=== PATIENT | female | born 1995 | race Caucasian/White ===

== ENCOUNTER 2016-10-06 14:48 | Emergency (ER) | payer BC ==
[~2016-10-06] VITALS: Ht 165.1 cm; Wt 53.4 kg
[~2016-10-06 14:48] MED LIST: FLUD0.1T10 PO; MELA1TAB5 PO; ONDA4TAB10 SL; PROC1TAB5 PO
[2016-10-06 14:58] VITALS: TEMP 36.8; Ht 165.1 cm; Wt 53.4 kg
[2016-10-06] MEDS ORDERED: MIDO5TAB PO (15:53)
[2016-10-06] MEDS ORDERED: MELA3TAB PO (15:53)
[2016-10-06] MEDS ORDERED: FEXO1TAB49 PO (15:53)
[2016-10-06] MEDS ORDERED: SODIUM CHLORIDE 0.9% 1000ML 1,000 ML IV STA (15:56)
--- NOTE | 2016-10-06 16:08 | EMERGENCY ROOM VISIT NOTE ---
History Report prepared by Evi: Liz High Under the Supervision of: Dr. John Means M.D. First contact with patient: 15:52 Chief Complaint: TACHYCARDIA Stated Complaint: INTERMITTENT TACHYCARDIA, SYNCOPE Nursing Triage Summary: Pt c/o tachycardia events over the last 3 days as well as near syncopal episodes. Denies pain, denies caffeine intake. Has implanted recorder. History of Present Illness The patient is a 21 year old female who presents to the Emergency Room with complaints of intermittent tachycardia over the last three days. The patient states that each episode lasts approximately 3-10 minutes each. She states that each episode comes randomly and denies it being related to caffeine intake. The patient states that she has had this in the past, but denies it ever going on this long. She states that she has an internal loop monitor, stating that it was placed by Dr. Lynch, Cardiology. The patient states that she last saw Dr. Lynch last week, but states that she was not having palpitations then. The patient states that cardiology is unsure why she has the Postural orthostatic tachycardia syndrome. She states that she tried calling her shroudman's office today, but had difficulty getting through. The patient additionally notes that last evening she had a near syncopal episode. She states that she became diaphoretic and her vision blacked out. The patient states that she was sitting during the event. The patient's friend states that the episode lasted 40 seconds to one minute. The patient denies any recent illness. She does note that she has become dizzy with sitting up or standing for five minutes at a time since her symptoms began. The patient denies any urinary symptoms. She reports a normal appetite and fluid intake. Source of History: patient Onset: three days Position: other (global) Quality: other (tachycardia) Timing: intermittent Associated Symptoms: + diaphoresis, No urinary symptoms Note: Associated Symptoms: near syncopal, vision blacked out Review of Systems See HPI for pertinent positives & negatives. A total of 10 systems reviewed and were otherwise negative. Past Medical & Surgical Medical Problems: (1) Concussion (2) Headache Family History FH: migraine headache Hypertension Social History Smoking Status: Never Smoker Alcohol Use: none Drug Use: none Marital Status: single Housing Status: lives with roommate Occupation Status: employed, [employer] student Current/Historical Medications Scheduled Fexofenadine Hcl (Emelia Allergy), 180 MG PO DAILY Fludrocortisone Acetate (Florinef), 0.1 MG PO DAILY Melatonin (Melatonin), 3 MG PO HS Midodrine Hcl (Midodrine Hcl), 5 MG PO TID Scheduled PRN Napztnykyr-Qcqkcjnmggpcm-Wcqha (Fioricet), 1 CAP PO DAILY PRN for Headache Allergies Coded Allergies: Lactose Intolerance (Verified Allergy, Unknown, Unknown., 09/28/15) Reported by PT. Physical Exam Vital Signs Date Time Temp Pulse Resp B/P Pulse Ox O2 Delivery O2 Flow Rate FiO2 10/06/16 16:50 65 9 133/79 109 142/87 95 145/95 10/06/16 16:43 63 10/06/16 16:38 74 14 129/77 98 Room Air 10/06/16 14:58 36.8 94 16 145/94 98 Room Air Physical Exam GENERAL: Patient is in no acute distress. HEENT: No acute trauma, normocephalic atraumatic, mucous membranes moist, no nasal congestion, no scleral icterus. NECK: No stridor, no adenopathy, no meningismus, trachea is midline. LUNGS: Clear to auscultation bilaterally, no wheeze, no rhonchi, breath sounds equal. HEART: Without murmurs gallops or rubs, regular rate and rhythm. ABDOMEN: Soft, nontender, bowel sounds positive, no hernias, no peritonitis. EXTREMITIES: No cyanosis or edema, full range of motion of all the joints without pain or difficulty, no signs for acute trauma. NEUROLOGIC: Oriented x 3, no acute motor or sensory deficits, no focal weakness. SKIN: No rash, no jaundice, no diaphoresis. Medical Decision & Procedures ER Provider Diagnostic Interpretation: Orthostatic vital signs were positive, heart rate increased with standing. Laboratory Results 10/06/16 15:29 10/06/16 15:29 Test 10/06/16 15:29 10/06/16 16:50 Red Blood Count 4.10 M/uL (4.2-5.4) Mean Corpuscular Volume 88.5 fL (80-100) Mean Corpuscular Hemoglobin 30.0 pg (25-34) Mean Corpuscular Hemoglobin Concent 33.9 g/dl (32-36) RDW Standard Deviation 39.3 fL (36.4-46.3) RDW Coefficient of Variation 12.2 % (11.5-14.5) Mean Platelet Volume 10.3 fL (7.4-10.4) Anion Gap 8.0 mmol/L (3-11) Est Creatinine Clear Calc Drug Dose 116.2 ml/min Estimated GFR () 146.8 Estimated GFR (Non- 126.7 BUN/Creatinine Ratio 7.8 (10-20) Calcium Level 9.0 mg/dl (8.5-10.1) Thyroid Stimulating Hormone (TSH) 1.790 uIu/ml (0.300-4.500) Urine Color YELLOW Urine Appearance CLEAR (CLEAR) Urine pH 8.5 (4.5-7.5) Urine Specific [place] 1.011 (1.000-1.030) Urine Protein NEG (NEG) Urine Glucose (UA) NEG (NEG) Urine Ketones 1+ (NEG) Urine Occult Blood NEG (NEG) Urine Nitrite NEG (NEG) Urine Bilirubin NEG (NEG) Urine Urobilinogen NEG (NEG) Urine Leukocyte Esterase NEG (NEG) Urine Test NEG (NEG) Laboratory results reviewed by me. Medications Administered Medications (Trade) Dose Ordered Sig/Jennifer Route Start Time Stop Time Status Last Admin Dose Admin Sodium Chloride 1,000 ml @ 999 mls/hr Q1H1M STAT IV 10/06/16 15:56 10/06/16 16:56 DC 10/06/16 16:37 999 MLS/HR Sodium Chloride (Nss 500ml) 500 ml @ 999 mls/hr Q31M STAT IV 10/06/16 17:09 10/06/16 17:39 DC 10/06/16 17:30 999 MLS/HR ECG Indication: tachycardia Rate (beats per minute): 67 Rhythm: normal sinus Findings: no acute ischemic change, no ectopy ED Course 1552: The patient was evaluated in room B2. A complete history and physical exam was performed. 1556: Ordered Sodium Chloride 1000 ml @ 999 mls/hr IV. 1558: I discussed the patients case with Dr. Lynch, Cardiology. He states that [employer] should be brought in for an interrogation. 1601: I called for the [employer] rep at this time. 1743: Per the [employer] tech, every episode has been sinus tachycardia, rate of 140-150, and nothing to be concerned about. He is going to speak to Dr. Lynch, Cardiology and get back to me. Spoke with Dr. Lynch, pt is stable for discharge to follow in the office next week. Medical Decision The patient is a 21 year old female who presents to the ED with complaints of intermittent tachycardia. Differential diagnoses considered include dehydration , electrolyte imbalance, dysrhythmia, anemia, thyroid disorder. There is no leukocytosis or concerning anemia. No significant electrolyte abnormality or kidney failure. The patient appears to be in a euthyroid state. EKG shows a normal sinus rhythm, no acute ischemia. Orthostatic vital signs were positive as the heart rate increased with standing. The patient received IV saline, 1.5 L. She seems to be doing well. I spoke with the patient's shroudman. [employer] has been involved. It appears that the episodes are all sinus tachycardia with a rate up to 150, no concerning dysrhythmia. The patient was reassured. The patient is being discharged to follow with cardiology, hydration was encouraged. No medication changes were recommended. Consults Time Called: 1557 Consulting Physician: Dr. Lynch, Cardiology Returned Call: [phone] I discussed the patients case with Dr. Lynch, Cardiology. He states that [employer] should be brought in for an interrogation. Impression Primary Impression: Tachycardia Additional Impression: Near syncope Scribe Attestation The scribe's documentation has been prepared under my direction and personally reviewed by me in its entirety. I confirm that the note above accurately reflects all work, treatment, procedures, and medical decision making performed by me. Departure Information Dispostion Home / Self-Care Referrals RV. Maldonado MD (PCP) Patient Instructions My [facility] Additional Instructions stay well hydrated rest no alcohol this weekend see cardiology this upcoming week--call for an appt testing today was all ok return if worsening Problem Qualifiers
[2016-10-06 16:12] LABS: HEMATOCRIT 36.3 % (37-47); MEAN CELL VOLUME 88.5 fL (80-100); MEAN CORPUSCULAR HGB CONC 33.9 g/dl (32-36); MEAN PLATELET VOLUME 10.3 fL (7.4-10.4); PLATELET COUNT 250 K/uL (130-400); WHITE BLOOD COUNT 5.38 K/uL (4.8-10.8)
[2016-10-06 16:20] LABS: BUN/CREATININE RATIO 7.8 (10-20); CREATININE 0.64 mg/dl (0.60-1.20); POTASSIUM 3.2 mmol/L (3.5-5.1)
[2016-10-06 16:31] LABS: THYROID STIMULATING HORMONE 1.79 uIu/ml (0.300-4.500)
[2016-10-06] MEDS ORDERED: SODIUM CHLORIDE 0.9% 500ML 500 ML IV STA (17:09)
[2016-10-06 17:22] LABS: URINE APPEARANCE CLEAR (CLEAR); URINE BILIRUBIN NEG (NEG); URINE COLOR YELLOW; URINE NITRITE NEG (NEG); URINE PH 8.5 (4.5-7.5); URINE SPECIFIC GRAVITY 1.011 (1.000-1.030); UROBILINOGEN NEG (NEG)
[2016-10-06 17:24] LABS: MANUAL MICROSCOPIC REQUIRED? NO; REVIEW REQ? NO
[2016-10-06 20:00] VITALS: BP 126/81; PULSE 68; O2SAT 100
[2016-10-06] MEDS ORDERED: BUTA1CAP17 PO (23:07)
== END 2016-10-06 20:02 | disposition home or self-care (01) ==
LOC: C.EDB 14:49
DX: R00.0 Tachycardia, unspecified (principal); R55 Syncope and collapse; R61 Generalized hyperhidrosis; Z79.899 Other long term (current) drug therapy; Z87.828 Personal history of other (healed) physical injury and trauma; Z82.49 Family history of ischemic heart disease and other diseases of the circulatory system; Z84.89 Family history of other specified conditions

== ENCOUNTER 2017-03-27 18:56 | Emergency (ER) | payer BC ==
[~2017-03-27] VITALS: Ht 165.1 cm; Wt 56.6 kg
[~2017-03-27 18:56] MED LIST changes: +BUTA1CAP17 PO; +FEXO1TAB49 PO; -MELA1TAB5 PO; +MELA3TAB PO; +MIDO5TAB PO; -ONDA4TAB10 SL; -PROC1TAB5 PO
[2017-03-27 18:59] VITALS: TEMP 37.2; Ht 165.1 cm; Wt 56.6 kg
[2017-03-27] MEDS ORDERED: SODIUM CHLORIDE 0.9% 1000ML 1,000 ML IV STA (20:37)
--- NOTE | 2017-03-27 20:43 | EMERGENCY ROOM VISIT NOTE ---
History Report prepared by Evi: Ciaran Lang Under the Supervision of: Dr. Brandy Negron M.D. First contact with patient: 20:31 Chief Complaint: SYNCOPE Stated Complaint: FAINTING,TACHY Nursing Triage Summary: pt reports" passed out 2 times earlier today. in and out of tachycardia" started at 1345 then 1530 History of Present Illness The patient is a 21 year old female who presents to the Emergency Room with complaints of two episodes of syncope that occurred today. Earlier in the day, the patient was in yoga class when she started feeling herself become tachycardic. Her vision started to dim so she lay on her back, but then she passed out. Her heart rate remained around 180 for about two hours, and then she passed out again. She denies any chest pain, or any recent sickness. She has a past history of these syncopal episodes and follows up with Dr. Lynch of Cardiology. She has an implanted [employer] device in place. She is not taking control. Source of History: patient Onset: earlier today Position: other (Global) Symptom Intensity: 2 Episodes Quality: other (Syncope) Timing: resolved Associated Symptoms: No fevers, No headache, No sorethroat, No cough, No chest pain Review of Systems See HPI for pertinent positives & negatives. A total of 10 systems reviewed and were otherwise negative. Past Medical & Surgical Medical Problems: (1) Concussion (2) Headache Family History FH: migraine headache Hypertension Social History Smoking Status: Never Smoker Alcohol Use: none Drug Use: none Marital Status: single Housing Status: lives with roommate Occupation Status: employed, [employer] student Current/Historical Medications Scheduled Fexofenadine Hcl (Emelia Allergy), 180 MG PO DAILY Fludrocortisone Acetate (Florinef), 0.1 MG PO DAILY Melatonin (Melatonin), 3 MG PO HS Midodrine Hcl (Midodrine Hcl), 5 MG PO TID Scheduled PRN Qkrwumzerw-Mvgtpjkqanirj-Aexxo (Fioricet), 1 CAP PO DAILY PRN for Headache Allergies Coded Allergies: Lactose Intolerance (Verified Allergy, Unknown, Unknown., 03/27/17) Reported by PT. Physical Exam Vital Signs Date Time Temp Pulse Resp B/P (MAP) Pulse Ox O2 Delivery O2 Flow Rate FiO2 03/27/17 22:55 74 18 121/73 98 03/27/17 21:16 77 117/69 95 130/86 120 145/92 03/27/17 20:49 77 03/27/17 18:59 37.2 95 18 146/80 97 Room Air Physical Exam Vital signs reviewed. General: Well-appearing female, in no significant distress. HEENT: No scleral icterus, PERRLA, neck supple. Atraumatic. Cardiovascular: Regular rate and rhythm, no extra sounds. Pulmonary: Clear to auscultation bilaterally, normal work of breathing. Abdomen: Soft, nontender, nondistended, positive bowel sounds. Musculoskeletal: Atraumatic, no peripheral edema. Neurologic: Patient awake alert and oriented x 3, full strength in all 4 extremities. Cranial nerves 2 through 12 grossly intact. Skin: Warm, dry, no rash Medical Decision & Procedures ER Provider Diagnostic Interpretation: Radiology results as stated below per my review and radiologist interpretation: CHEST ONE VIEW PORTABLE CLINICAL HISTORY: tachycardia COMPARISON STUDY: February 11, 2016 FINDINGS: The cardiac and mediastinal contours are normal. There is no evidence of focal pulmonary consolidation. There is no evidence of failure. No pleural effusions are visualized.[ An electronic device projects over the left chest possibly representing an event recorder IMPRESSION: No active disease in the chest. Electronically signed by: Tremaine Foster M.D. 03/27/2017 8:54 PM Dictated Date/Time: 03/27/2017 8:54 PM Laboratory Results 03/27/17 21:14 Red Blood Count 4.08, Mean Corpuscular Volume 87.3, Mean Corpuscular Hemoglobin 29.2, Mean Corpuscular Hemoglobin Concent 33.4, Mean Platelet Volume 10.3, Neutrophils (%) (Auto) 66.9, Lymphocytes (%) (Auto) 26.6, Monocytes (%) (Auto) 6.0, Eosinophils (%) (Auto) 0.3, Basophils (%) (Auto) 0.2, Neutrophils # (Auto) 4.05, Lymphocytes # (Auto) 1.61, Monocytes # (Auto) 0.36, Eosinophils # (Auto) 0.02, Basophils # (Auto) 0.01 03/27/17 21:14 Test 03/27/17 21:14 03/27/17 21:24 White Blood Count 6.05 K/uL (4.8-10.8) Red Blood Count 4.08 M/uL (4.2-5.4) Hemoglobin 11.9 g/dL (12.0-16.0) Hematocrit 35.6 % (37-47) Mean Corpuscular Volume 87.3 fL (80-100) Mean Corpuscular Hemoglobin 29.2 pg (25-34) Mean Corpuscular Hemoglobin Concent 33.4 g/dl (32-36) Platelet Count 251 K/uL (130-400) Mean Platelet Volume 10.3 fL (7.4-10.4) Neutrophils (%) (Auto) 66.9 % Lymphocytes (%) (Auto) 26.6 % Monocytes (%) (Auto) 6.0 % Eosinophils (%) (Auto) 0.3 % Basophils (%) (Auto) 0.2 % Neutrophils # (Auto) 4.05 K/uL (1.4-6.5) Lymphocytes # (Auto) 1.61 K/uL (1.2-3.4) Monocytes # (Auto) 0.36 K/uL (0.11-0.59) Eosinophils # (Auto) 0.02 K/uL (0-0.5) Basophils # (Auto) 0.01 K/uL (0-0.2) RDW Standard Deviation 37.7 fL (36.4-46.3) RDW Coefficient of Variation 11.9 % (11.5-14.5) Immature Granulocyte % (Auto) 0.0 % Immature Granulocyte # (Auto) 0.00 K/uL (0.00-0.02) Anion Gap 8.0 mmol/L (3-11) Est Creatinine Clear Calc Drug Dose 106.5 ml/min Estimated GFR () 133.3 Estimated GFR (Non- 115.0 BUN/Creatinine Ratio 9.7 (10-20) Calcium Level 9.3 mg/dl (8.5-10.1) Magnesium Level 2.3 mg/dl (1.8-2.4) Total Bilirubin 0.5 mg/dl (0.2-1) Direct Bilirubin 0.1 mg/dl (0-0.2) Aspartate Amino Transf (AST/SGOT) 17 U/L (15-37) Alanine Aminotransferase (ALT/SGPT) 16 U/L (12-78) Alkaline Phosphatase 69 U/L (45-117) Total Protein 8.1 gm/dl (6.4-8.2) Albumin 4.2 gm/dl (3.4-5.0) Bedside Troponin I < 0.030 ng/ml (0-0.045) Laboratory results per my review. Medications Administered Medications (Trade) Dose Ordered Sig/Jennifer Route Start Time Stop Time Status Last Admin Dose Admin Sodium Chloride 1,000 ml @ 999 mls/hr Q1H1M STAT IV 03/27/17 20:37 03/27/17 21:37 DC 03/27/17 21:24 999 MLS/HR Potassium Chloride (Klor-Con M10) 40 meq NOW STAT PO 03/27/17 22:00 03/27/17 22:01 DC 03/27/17 22:32 40 MEQ ECG Indication: syncope Rate (beats per minute): 74 Rhythm: normal sinus Findings: no acute ischemic change, no ectopy ED Course 2030: Past medical records reviewed. The patient was evaluated in room A12B. A complete history and physical examination was performed. 2036: Ordered Sodium Chloride 1000 ml @ 999 mls/hr IV 2199: Ordered Potassium Chloride 40 mEq PO 2234: I received the [employer] report at this time. It showed 1 episode of a few irregular PAC's without ventricular tachycardia or SVT, d/w with cardiology. 2236: I spoke with Dr. Linda of Cardiology at this time. He is comfortable with the patient being discharged. f/u in office 0: Upon reevaluation, the patient appeared to have improvement of her symptoms. I discussed findings with her. She verbalized agreement of the treatment plan. She was discharged home. Medical Decision Differential diagnosis: Etiologies such as premature contractions, electrolyte abnormality, cardiac dysrhythmia, thyroid dysfunction, pulmonary embolism, infection, gastrointestinal, as well as others were entertained. This pt was evaluated and appeared to be in no distress. IV access was obtained and lab work was drawn. Pt was placed on the manager zone. Pt was hydrated with NSS. Orthostatics are positive. Implanted loop monitor was interrogated and reveals a few PACs without significant arrhythmia to explain syncope. Early Feb there was a 6 min run of tachycardia, pt is aware. I d/w Dr Linda of cards who recommends outpatient management. Syncope is not explained by ectopy. Pt was informed of the findings, advised to f/u with Dr Lynch in the office. She will return to the ED for worsening of symptoms or any medical concerns. Medication Reconcilliation Current Medication List: was personally reviewed by me Blood Pressure Screening Patient's blood pressure: Elevated blood pressure Blood pressure disposition: Elevated BP felt to be situational Consults Time Called: [phone] Consulting Physician: Dr. Linda - Cardiology Returned Call: [phone] We discussed the patient's case. He is comfortable with discharge. Impression Primary Impression: Palpitations Additional Impressions: Vasovagal syncope Orthostatic syncope Scribe Attestation The scribe's documentation has been prepared under my direction and personally reviewed by me in its entirety. I confirm that the note above accurately reflects all work, treatment, procedures, and medical decision making performed by me. Departure Information Dispostion Home / Self-Care Referrals RV. Maldonado MD (PCP) Mumtaz Lynch M.D. Forms HOME CARE DOCUMENTATION FORM, IMPORTANT VISIT INFORMATION Patient Instructions My [facility] Additional Instructions Diagnosis: Palpitations. Drink plenty of fluids. Follow up with Dr Lynch this week for reevaluation. Return to the ED for worsening of symptoms or any medical concerns. Problem Qualifiers
--- NOTE | 2017-03-27 20:56 | DIAGNOSTIC IMAGING REPORT ---
CHEST ONE VIEW PORTABLE CLINICAL HISTORY: tachycardia COMPARISON STUDY: February 11, 2016 FINDINGS: The cardiac and mediastinal contours are normal. There is no evidence of focal pulmonary consolidation. There is no evidence of failure. No pleural effusions are visualized.[ An electronic device projects over the left chest possibly representing an event recorder IMPRESSION: No active disease in the chest. Electronically signed by: Tremaine Foster M.D. 03/27/2017 8:54 PM Dictated Date/Time: 03/27/2017 8:54 PM
[2017-03-27 21:37] LABS: BASO % 0.2 %; BASO ABS # 0.01 K/uL (0-0.2); COMPLETE YES; EOS % 0.3 %; HEMATOCRIT 35.6 % (37-47); LYMPH % 26.6 %; LYMPH ABS # 1.61 K/uL (1.2-3.4); MEAN CELL VOLUME 87.3 fL (80-100); MEAN CORPUSCULAR HEMOGLOBIN 29.2 pg (25-34); MEAN CORPUSCULAR HGB CONC 33.4 g/dl (32-36); MEAN PLATELET VOLUME 10.3 fL (7.4-10.4); NEUT % 66.9 %; PLATELET COUNT 251 K/uL (130-400); RED BLOOD COUNT 4.08 M/uL (4.2-5.4); WHITE BLOOD COUNT 6.05 K/uL (4.8-10.8)
[2017-03-27 21:58] LABS: BUN/CREATININE RATIO 9.7 (10-20); CALCIUM 9.3 mg/dl (8.5-10.1); CREATININE 0.74 mg/dl (0.60-1.20); MAGNESIUM 2.3 mg/dl (1.8-2.4); POTASSIUM 3.2 mmol/L (3.5-5.1)
[2017-03-27] MEDS ORDERED: POTASSIUM CHLORIDE 10 MEQ TABCR PO STA (22:00)
[2017-03-27 22:55] VITALS: BP 121/73; PULSE 74; O2SAT 98
== END 2017-03-27 22:57 | disposition home or self-care (01) ==
LOC: C.EDB 18:57
DX: R00.2 Palpitations (principal); R55 Syncope and collapse

== ENCOUNTER → 2017-04-02 | Outpatient (CLI) | payer BC | END | disposition home or self-care (01) | LOC: C.LAB1850 10:48 | PROVIDERS: ATTEND Physician Assistant | DX: E87.6 Hypokalemia (principal) ==

== ENCOUNTER → 2017-04-10 | Outpatient (CLI) | payer BC | END | disposition home or self-care (01) | LOC: C.LAB1850 09:20 | PROVIDERS: ATTEND Physician Assistant | DX: E87.6 Hypokalemia (principal) ==

== ENCOUNTER 2017-09-02 15:12 | Emergency (ER) | payer BC ==
[~2017-09-02] VITALS: Ht 165.1 cm; Wt 54.3 kg
[2017-09-02 15:17] VITALS: TEMP 36.9; Ht 165.1 cm; Wt 54.3 kg
[2017-09-02] MEDS ORDERED: SODIUM CHLORIDE 0.9% 1000ML 1,000 ML IV STA (15:22)
[2017-09-02 15:29] VITALS: O2SAT 98
[2017-09-02 15:45] LABS: BASO % 0.3 %; BASO ABS # 0.02 K/uL (0-0.2); EOS % 1.7 %; EOS ABS # 0.11 K/uL (0-0.5); HEMOGLOBIN 12.5 g/dL (12.0-16.0); IG# 0.01 K/uL (0.00-0.02); LYMPH ABS # 1.33 K/uL (1.2-3.4); MEAN CELL VOLUME 87.9 fL (80-100); MEAN CORPUSCULAR HEMOGLOBIN 29.7 pg (25-34); MEAN CORPUSCULAR HGB CONC 33.8 g/dl (32-36); MEAN PLATELET VOLUME 9.9 fL (7.4-10.4); MONO % 9.3 %; MONO ABS # 0.59 K/uL (0.11-0.59); NEUT % 67.5 %; NEUT ABS # 4.27 K/uL (1.4-6.5); PLATELET COUNT 245 K/uL (130-400); RED CELL DISTRIBUTION WIDTH CV 12.6 % (11.5-14.5); RED CELL DISTRIBUTION WIDTH SD 40.7 fL (36.4-46.3); WHITE BLOOD COUNT 6.33 K/uL (4.8-10.8)
[2017-09-02 15:55] LABS: INR 1.1 (0.9-1.1); PTT PATIENT 26.3 SECONDS (21.0-31.0)
--- NOTE | 2017-09-02 15:56 | DIAGNOSTIC IMAGING REPORT ---
CHEST ONE VIEW PORTABLE HISTORY: 22 years-old Female EVALUATE WEAKNESS acute weakness COMPARISON: Chest radiograph 03/27/2017 TECHNIQUE: Portable AP view of the chest FINDINGS: Cardiomediastinal and hilar silhouettes are within normal limits. Loop recorder device projects over the left heart border. No pneumothorax, pleural effusion, focal airspace consolidation or overt pulmonary edema. The bones of the chest appear grossly intact. IMPRESSION: No acute process. The above report was generated using voice recognition software. It may contain grammatical, syntax or spelling errors. Electronically signed by: Bhanu Aranda M.D. 09/02/2017 3:55 PM Dictated Date/Time: 09/02/2017 3:54 PM
[2017-09-02 16:09] LABS: ALBUMIN 4.1 gm/dl (3.4-5.0); BLOOD UREA NITROGEN 9 mg/dl (7-18); CALCIUM 8.9 mg/dl (8.5-10.1); CARBON DIOXIDE 26 mmol/L (21-32); CREATININE 0.83 mg/dl (0.60-1.20); GLUCOSE 119 mg/dl (70-99); POTASSIUM 3.5 mmol/L (3.5-5.1); SODIUM 137 mmol/L (136-145)
[2017-09-02 16:22] LABS: ALKALINE PHOSPHATASE 72 U/L (45-117); ALT/SGPT 30 U/L (12-78); AST/SGOT 17 U/L (15-37); CKMB < 0.5 ng/ml (0.5-3.6); TOTAL PROTEIN 8.3 gm/dl (6.4-8.2)
--- NOTE | 2017-09-02 16:49 | EMERGENCY ROOM VISIT NOTE ---
History Report prepared by Evi: Farshad Kumar Under the Supervision of: Dr. Nael Mcdaniel M.D. First contact with patient: 15:22 Chief Complaint: PALPITATIONS Stated Complaint: PALPS,LIGHTHEADED,TACHY History of Present Illness The patient is a 22 year old female who presents to the Emergency Room with complaints of intermittent palpitations beginning three days ago. The patient states she has a history of SVT. She reports she had a possible SVT episode three days ago where she became lightheaded and lost consciousness. The patient notes she was in lab, standing, and someone caught her falling, so she did not hit her head. She states she was told she was unconscious for 40 seconds. The patient reports she did not have EMS called because she contacted the person who did her ablation three months ago. She notes she activated her implantable loop recorder after becoming conscious. The patient states she has not received the information that it recorded yet. She reports she felt fine when sitting for the past two days, and standing worsened her symptoms. The patient notes she had intermittent chest pain when standing and a pulse in the 180s yesterday. She states she had to sit down to make her symptoms better. The patient reports she does not know how long her pulse was elevated for. She states she came into the ED today because her pulse was still in the 140s. The patient reports her heart rate seems normal, it is just fast. She notes she has a history of low potassium, and she lost eight pounds over the past three months. Pt denies headache, fevers, chills, diaphoresis, visual changes, neck pain, breathing difficulties, nausea, vomiting, abdominal pain, back pain, melena, hematochezia, urinary symptoms, numbness, weakness, lymphadenopathy, rash, long travel, recent plane rides, being around sick people, a family history of SVT, an abnormal appetite, or other complaints. Source of History: patient Onset: three days ago Position: chest Quality: other (palpitations) Timing: intermittent Modifying Factors (Worsening): other (standing) Modifying Factors (Relieving): other (sitting down) Associated Symptoms: + LOC Note: Associated symptoms: lightheaded Review of Systems See HPI for pertinent positives and negatives. A total of ten systems were reviewed and were otherwise negative. Past Medical & Surgical Medical Problems: (1) Concussion (2) Headache Family History FH: migraine headache Hypertension Social History Smoking Status: Never Smoker Alcohol Use: none Drug Use: none Marital Status: single Housing Status: lives with roommate Occupation Status: employed, [employer] student Current/Historical Medications Scheduled Fexofenadine Hcl (Emelia Allergy), 180 MG PO DAILY Fludrocortisone Acetate (Florinef), 0.1 MG PO DAILY Melatonin (Melatonin), 3 MG PO HS Midodrine Hcl (Midodrine Hcl), 5 MG PO TID Scheduled PRN Mwtspocscv-Myrbtzeijrhos-Bmksl (Fioricet), 1 CAP PO DAILY PRN for Headache Allergies Coded Allergies: Lactose Intolerance (Verified Allergy, Unknown, Unknown., 09/02/17) Reported by PT. Physical Exam Vital Signs Date Time Temp Pulse Resp B/P (MAP) Pulse Ox O2 Delivery O2 Flow Rate FiO2 09/02/17 18:04 70 16 107/69 97 Room Air 09/02/17 17:00 76 18 118/77 99 Room Air 09/02/17 16:42 78 13 114/72 100 09/02/17 16:00 77 12 119/71 100 Room Air 09/02/17 15:45 76 119/75 106 127/79 109 125/84 09/02/17 15:29 83 09/02/17 15:29 98 Room Air 09/02/17 15:17 36.9 88 16 134/84 98 Room Air Physical Exam GENERAL: Awake, alert, well-appearing, in no distress HENT: Normocephalic, atraumatic. Oropharynx unremarkable. EYES: Normal conjunctiva. Sclera non-icteric. NECK: Supple. No nuchal rigidity. FROM. No masses. RESPIRATORY: Clear to auscultation. No wheezes. No rales. Normal respiratory effort. CARDIAC: Normal rate. Normal rhythm. No murmurs. No rubs. Extremities warm and well perfused. Pulses equal. No JVD. GI: Soft, non-distended. No tenderness to palpation. No rebound or guarding. No masses. RECTAL: Deferred. MUSCULOSKELETAL: Atraumatic. Chest examination reveals no tenderness. The back is symmetrical on inspection without obvious abnormality. There is no CVA tenderness to palpation. No joint edema. LOWER EXTREMITIES: Calves are equal size bilaterally and non-tender. No edema. No discoloration. NEURO: Normal sensorium. No sensory or motor deficits noted. SKIN: No rash or jaundice noted. Medical Decision & Procedures ER Provider Diagnostic Interpretation: X-ray: Per my interpretation, radiologist review. CHEST ONE VIEW PORTABLE HISTORY: 22 years-old Female EVALUATE WEAKNESS acute weakness COMPARISON: Chest radiograph 03/27/2017 TECHNIQUE: Portable AP view of the chest FINDINGS: Cardiomediastinal and hilar silhouettes are within normal limits. Loop recorder device projects over the left heart border. No pneumothorax, pleural effusion, focal airspace consolidation or overt pulmonary edema. The bones of the chest appear grossly intact. IMPRESSION: No acute process. The above report was generated using voice recognition software. It may contain grammatical, syntax or spelling errors. Electronically signed by: Bhanu Aranda M.D. 09/02/2017 3:55 PM Dictated Date/Time: 09/02/2017 3:54 PM Laboratory Results 09/02/17 15:30 Red Blood Count 4.21, Mean Corpuscular Volume 87.9, Mean Corpuscular Hemoglobin 29.7, Mean Corpuscular Hemoglobin Concent 33.8, Mean Platelet Volume 9.9, Neutrophils (%) (Auto) 67.5, Lymphocytes (%) (Auto) 21.0, Monocytes (%) (Auto) 9.3, Eosinophils (%) (Auto) 1.7, Basophils (%) (Auto) 0.3, Neutrophils # (Auto) 4.27, Lymphocytes # (Auto) 1.33, Monocytes # (Auto) 0.59, Eosinophils # (Auto) 0.11, Basophils # (Auto) 0.02 09/02/17 15:30 Test 09/02/17 00:00 09/02/17 15:30 09/02/17 15:32 Urine Color YELLOW Urine Appearance CLEAR (CLEAR) Urine pH 5.0 (4.5-7.5) Urine Specific [place] 1.009 (1.000-1.030) Urine Protein NEG (NEG) Urine Glucose (UA) NEG (NEG) Urine Ketones NEG (NEG) Urine Occult Blood NEG (NEG) Urine Nitrite NEG (NEG) Urine Bilirubin NEG (NEG) Urine Urobilinogen NEG (NEG) Urine Leukocyte Esterase NEG (NEG) Urine Test NEG (NEG) White Blood Count 6.33 K/uL (4.8-10.8) Red Blood Count 4.21 M/uL (4.2-5.4) Hemoglobin 12.5 g/dL (12.0-16.0) Hematocrit 37.0 % (37-47) Mean Corpuscular Volume 87.9 fL (80-100) Mean Corpuscular Hemoglobin 29.7 pg (25-34) Mean Corpuscular Hemoglobin Concent 33.8 g/dl (32-36) Platelet Count 245 K/uL (130-400) Mean Platelet Volume 9.9 fL (7.4-10.4) Neutrophils (%) (Auto) 67.5 % Lymphocytes (%) (Auto) 21.0 % Monocytes (%) (Auto) 9.3 % Eosinophils (%) (Auto) 1.7 % Basophils (%) (Auto) 0.3 % Neutrophils # (Auto) 4.27 K/uL (1.4-6.5) Lymphocytes # (Auto) 1.33 K/uL (1.2-3.4) Monocytes # (Auto) 0.59 K/uL (0.11-0.59) Eosinophils # (Auto) 0.11 K/uL (0-0.5) Basophils # (Auto) 0.02 K/uL (0-0.2) RDW Standard Deviation 40.7 fL (36.4-46.3) RDW Coefficient of Variation 12.6 % (11.5-14.5) Immature Granulocyte % (Auto) 0.2 % Immature Granulocyte # (Auto) 0.01 K/uL (0.00-0.02) Prothrombin Time 11.2 SECONDS (9.0-12.0) Prothromb Time International Ratio 1.1 (0.9-1.1) Activated Partial Thromboplast Time 26.3 SECONDS (21.0-31.0) Partial Thromboplastin Ratio 1.0 Anion Gap 7.0 mmol/L (3-11) Est Creatinine Clear Calc Drug Dose 90.4 ml/min Estimated GFR () 115.2 Estimated GFR (Non- 99.4 BUN/Creatinine Ratio 10.9 (10-20) Calcium Level 8.9 mg/dl (8.5-10.1) Magnesium Level 2.2 mg/dl (1.8-2.4) Total Bilirubin 0.5 mg/dl (0.2-1) Direct Bilirubin 0.1 mg/dl (0-0.2) Aspartate Amino Transf (AST/SGOT) 17 U/L (15-37) Alanine Aminotransferase (ALT/SGPT) 30 U/L (12-78) Alkaline Phosphatase 72 U/L (45-117) Total Creatine Kinase 44 U/L (26-192) Creatine Kinase MB < 0.5 ng/ml (0.5-3.6) Creatine Kinase MB Ratio (0-3.0) Total Protein 8.3 gm/dl (6.4-8.2) Albumin 4.1 gm/dl (3.4-5.0) Thyroid Stimulating Hormone (TSH) 1.480 uIu/ml (0.300-4.500) Bedside D-Dimer 257 ng/mlFEU (0-450) Bedside Troponin I < 0.030 ng/ml (0-0.045) Laboratory results reviewed by me Medications Administered Medications (Trade) Dose Ordered Sig/Jennifer Route Start Time Stop Time Status Last Admin Dose Admin Sodium Chloride 1,000 ml @ 125 mls/hr Q8H STAT IV 09/02/17 15:22 09/02/17 18:32 DC 09/02/17 15:22 125 MLS/HR ECG Per My Interpretation Indication: palpitations Rate (beats per minute): 79 Rhythm: normal sinus Findings: no acute ischemic change, no ectopy, other (Normal intervals) ED Course 1522: Ordered Sodium Chloride 1000 ml @ 125 mls/hr IV 1530: The patient was evaluated in room B11B. A complete history and physical exam was performed. 1653: I reevaluated the patient. She feel better until she stands. When she stands, she feels dizzy. 1754: I reevaluated the patient. She feels much better. Discussed results and discharge instructions: she verbalized understanding and agreement. The patient is ready for discharge. Medical Decision Triage Nursing notes reviewed and agree them. The patient's history was concerning for palpitations. Differential diagnosis: Etiologies such as electrolyte abnormality, cardiac dysrhythmia, thyroid dysfunction, pulmonary embolism, infection, gastrointestinal, as well as others were entertained. Physical examination: Benign as above. ER treatment provided: Cardiac monitoring. Normal saline hydration On reassessment the patient felt better. Diagnostic interpretation by me: The electrocardiogram was negative for pathologic change. The labs revealed an unremarkable CBC, chemistry panel, electrolytes, cardiac markers and d-dimer. Urinalysis negative. Patient is not . Imaging studies: Chest x-ray as above. The patient noted a syncopal episode several days ago. She thinks she had an SVT episode. She has a loop recorder and it was sent to the [facility] cardiology group. She will contact her head silverman's office tomorrow morning. The patient has mild tachycardia with positional change but is experiencing no dysrhythmias. There is no evidence of emergent pathology at this time. She was monitored and did well. If she develops any recurrent symptoms she will come back to the ER for reevaluation. Medication Reconcilliation Current Medication List: was personally reviewed by me Blood Pressure Screening Patient's blood pressure: Normal blood pressure Blood pressure disposition: Did not require urgent referral Impression Primary Impression: Palpitations Additional Impression: Syncope Scribe Attestation The scribe's documentation has been prepared under my direction and personally reviewed by me in its entirety. I confirm that the note above accurately reflects all work, treatment, procedures, and medical decision making performed by me. Departure Information Dispostion Home / Self-Care Referrals RV. Maldonado MD (PCP) Mumtaz Lynch M.D. Forms HOME CARE DOCUMENTATION FORM, IMPORTANT VISIT INFORMATION, WORK / SCHOOL INSTRUCTIONS Patient Instructions My [facility] Additional Instructions PALPITATIONS(RAPID OR SKIPPING HEARTBEAT) INSTRUCTIONS: Rest and drink plenty of fluids as tolerated. Continue current medications. Resume normal activities once your symptoms resolve. Eat a heart healthy, low fat, low cholesterol diet. Return to the ER immediately for passing out, chest pain, abdominal pain, vomiting, fevers, difficulty breathing, worsening of your condition, or as needed. Follow up with your head silverman tomorrow for a recheck of your current condition. Problem Qualifiers
[2017-09-02 18:04] VITALS: BP 107/69; PULSE 70; O2SAT 97
== END 2017-09-02 18:12 | disposition home or self-care (01) ==
LOC: C.EDB 15:13
DX: R00.2 Palpitations (principal); R55 Syncope and collapse; Z82.49 Family history of ischemic heart disease and other diseases of the circulatory system; Z79.899 Other long term (current) drug therapy; E73.9 Lactose intolerance, unspecified